=== PATIENT | female | born 1955 | race Two or more races ===

== ENCOUNTER 2016-02-22 10:56 | Inpatient (IN) | payer OTHER ==
[2016-02-22 11:07] VITALS: BMI 24.1
--- NOTE | 2016-02-22 12:10 | HP ---
COWS - Scale Resting Pulse: 2= [place] 101-120 Sweatin= Chills/Flushing Restless Observation: 3= Extraneous Movement Pupil Size: 1= Pupils >than Normal Bone or Joint Aches: 4=Acute Joint/Muscle Pain Runny Nose/ Eye Tearin= Runny Nose/Eyes GI Upset > 30mins: 2= Nausea/Diarrhea (NAUSEA) Tremor Observation: 1= Tremor [place], Not Seen Yawning Observation: 1= 1-2x During Session Anxiety or Irritability: 2=Irritable/Anxious Goose Flesh Skin: 0=Smooth Skin COWS Score: 19 CIWA Score - CIWA Score Nausea/Vomitin-Int. Nausea w/Dry Heave Muscle Tremors: 3 Anxiety: 4-Mod. Anxious/Guarded Agitation: 4-Moderately Restless Paroxysmal Sweats: No Perspiration Orientation: 0-Oriented Tacttile Disturbances: 3-Moderate Itch/Numb/Burn Auditory Disturbances: 0-None Visual Disturbances: 0-None Headache: 0-None Present CIWA-Ar Total Score: 18 Admission [facility] Chief Complaint: DETOX TX FOR HEROIN, COCAINE AND ALCOHOL DEPENDENCE Allergies/Adverse Reactions: Allergies Allergy/AdvReac Type Severity Reaction Status Date / Time ibuprofen [From Motrin] Allergy Severe Nausea Verified 02/22/16 11:20 History of Present Illness: 60 Y/O AA/FEMALIE WITH A HX OF HEROIN,COCAINE AND ALCOHOL DEPENDENCE SEEKING DETOX [place]. Exam Limitations: No Limitations - Ebola screening Have you traveled outside of the country in the last 21 days: No Have you had contact with anyone from an Ebola affected area: No Have you been sick,other than usual withdrawal symptoms: No Do you have a fever: No - Review of Systems Constitutional: Chills, Loss of Appetite, Night Sweats, Changes in sleep, Unintentional Wgt. Loss EENT: reports: Blurred Vision (WEARS GLASSES.), Tearing, Nose Congestion, Dental Problems (BILATERAL DENTURES) Respiratory: reports: No Symptoms reported Cardiac: reports: No Symptoms Reported GI: reports: Constipated, Diarrhea, Nausea, Poor Appetite, Poor Fluid Intake : reports: Other Musculoskeletal: reports: Joint Pain (HX JOINT PAINS), Muscle Pain Integumentary: reports: No Symptoms Reported Neuro: reports: Headache, Tremors, Unsteady Gait, Dizziness Endocrine: reports: No Symptoms Reported Hematology: reports: No Symptoms Reported Psychiatric: reports: Orientated x3, Anxious, Depressed (HX DEPRESSION) Other Systems: Reviewed and Negative Patient History - Patient Medical History Hx Anemia: No Hx Asthma: No Hx Chronic Obstructive Pulmonary Disease (COPD): No Hx Cancer: No Hx Cardiac Disorders: No Hx Congestive Heart Failure: No Hx Hypertension: Yes (ON MED) Hx Hypercholesterolemia: No Hx Pacemaker: No HX Cerebrovascular Accident: No Hx Seizures: No Hx Diabetes: No Hx Gastrointestinal Disorders: No Hx Liver Disease: No Hx Genitourinary Disorders: No Hx Sexually Transmitted Disorders: No Hx Renal Disease (ESRD): No Hx Thyroid Disease: No Hx Human Immunodeficiency Virus (HIV): No (LAST 2013 NEGATIVE) Hx Hepatitis C: No Hx Depression: Yes Hx Suicide Attempt: No (DENIES) Hx Bipolar Disorder: No Hx Schizophrenia: No - Patient Surgical History Past Surgical History: Yes Hx Neurologic Surgery: No Hx Cataract Extraction: No Hx Cardiac Surgery: No Hx Lung Surgery: No Hx Breast Surgery: No Hx Breast Biopsy: No Hx Abdominal Surgery: No Hx Appendectomy: No Hx Cholecystectomy: No Hx Genitourinary Surgery: No Hx Section: No Hx Orthopedic Surgery: Yes (L knee sx ARTHROSCOPIC 2010) Hx Hysterectomy: No Anesthesia Reaction: No - PPD History Previous Implant?: Yes Documented Results: Negative w/proof Implanted On Prior [facility] Admission?: Yes Date: 10/15/15 Results: 0 MM PPD to be Administered?: No - Reproductive History Patient is a Female of Child Bearing Age (11 -55 yrs old): No (MENOPAUSAL WOMAN) Last Menstrual Period: 02/14/03 Patient : No - Smoking Cessation Smoking history: Current every day smoker Have you smoked in the past 12 months: Yes Aproximately how many cigarettes per day: 20 Hx Chewing Tobacco Use: No Initiated information on smoking cessation: Yes 'Breaking Loose' booklet given: 02/22/16 - Substance & Tx. History Hx Alcohol Use: Yes (SHARON/MCDERMOTT BEER) Hx Substance Use: Yes (HEROIN/COCAINE) Substance Use Type: Alcohol, Cocaine, Heroin Hx Substance Use Treatment: Yes ([facility]-DETOX) - Substances Abused Heroin Route: Inhalation Frequency: Daily Amount used: 10-15 BAGS Age of first use: 13 Date of Last Use: 02/21/16 Alcohol Route: Oral Frequency: Daily Amount used: 1 PINT COGNAC Age of first use: 13 Date of Last Use: 02/21/16 Cocaine Route: Inhalation Frequency: Daily Amount used: 1-2 GRAMS Age of first use: 13 Date of Last Use: 02/21/16 Family Disease History - Family Disease History Family Disease History: Other: Brother (DSA,ALCOHOL) Admission Physical Exam [facility] - Vital Signs Vital Signs: Vital Signs - 24 hr 02/22/16 11:04 Temperature 98.7 F Pulse Rate 105 H Respiratory 20 Rate Blood Pressure 137/91 - Physical General Appearance: Yes: Moderate Distress, Irritable, Anxious HEENTM: Yes: EOMI, Normocephalic, REZA, Pharynx Normal, Nasal Congestion, Rhinorrhea Respiratory: Yes: Chest Non-Tender, Lungs Clear, Normal Breath Sounds, No Respiratory Distress Neck: Yes: Supple, Trachea in good position Breast: Yes: Breast Exam Deferred Cardiology: Yes: Regular Rhythm, Regular Rate, S1, S2 Abdominal: Yes: Normal Bowel Sounds, Non Tender, Flat, Soft Genitourinary: Yes: Other (N/C) Back: Yes: Within Normal Limits Musculoskeletal: Yes: full range of Motion, Gait Steady Extremities: Yes: Normal Range of Motion, Non-Tender Neurological: Yes: television producer II-XII NML intact, Fully Oriented, Alert Integumentary: Yes: Dry, Warm - Diagnostic (1) Alcohol dependence with withdrawal Current Visit: Yes Status: Acute Qualifiers: Complication of substance-induced condition: uncomplicated Qualified Code(s): F10.230 - Alcohol dependence with withdrawal, uncomplicated (2) Nicotine dependence Current Visit: Yes Status: Chronic Qualifiers: Nicotine product type: cigarettes Substance use status: uncomplicated Qualified Code(s): F17.210 - Nicotine dependence, cigarettes, uncomplicated (3) Opioid dependence with withdrawal Current Visit: Yes Status: Acute (4) Cocaine dependence, uncomplicated Current Visit: Yes Status: Acute (5) Hypertension Current Visit: Yes Status: Chronic Qualifiers: Hypertension type: essential hypertension Qualified Code(s): I10 - Essential (primary) hypertension Cleared for Admission [facility] - Detox or Rehab [facility] Level of Care: Medically Managed Detox Regimen/Protocol: Methadone/Librium [facility] Breath Alcohol Content Breath Alcohol Content: 0 Urine Pregancy Test - Result Urine Test Results: Negative- NO Line Present Urine Drug Screen - Results Drug Screen Negative: No Urine Drug Screen Results: KHAI-Cocaine, OPI-Opiates, BZO-Benzodiazepines
[2016-02-22] MEDS ORDERED: guaiFENesin/D-METHORPHAN HB 10 ML UNIT-DOSE CUPS PO PRN (12:19)
[2016-02-22] MEDS ORDERED: LOPERAMIDE HCL 2 MG CAPSULE PO PRN (12:19)
[2016-02-22] MEDS ORDERED: MAGNESIUM HYDROX 2400MG/30ML ORAL SUSPENSION 30 ML CUP PO PRN (12:19)
[2016-02-22] MEDS ORDERED: MENTHOL/PHENOL 1 EACH UD MM PRN (12:19)
[2016-02-22] MEDS ORDERED: IBUPROFEN 400 MG TABLET (FP) PO PRN (12:19)
[2016-02-22] MEDS ORDERED: chlordiazePOXIDE HCL 25 MG CAPSULE PO PRN (12:19)
[2016-02-22] MEDS ORDERED: P-EPHED 60MG/TRIPROLIDI 2.5MG TABLET PO PRN (12:19)
[2016-02-22] MEDS ORDERED: ACETAMINOPHEN 325 MG TABLET (FP) PO PRN (12:19)
[2016-02-22] MEDS ORDERED: hydrOXYzine PAMOATE 25 MG CAPSULE (FP) PO PRN (12:19)
[2016-02-22] MEDS ORDERED: MAGNESIUM CITRATE 300 ML BOTTLE PO PRN (12:19)
[2016-02-22] MEDS ORDERED: MAG HYDROX/AL HYDROX/SIMETH 30 ML UNIT-DOSE CUP PO PRN (12:19)
[2016-02-22] MEDS ORDERED: METHADONE HCL 10 MG TABLET (FOR DETOX USE ONLY) PO ONE ×2 (13:49→23:00)
[2016-02-22] MEDS: HYDROCHLOROTHIAZIDE 25 MG TABLET (FP) PO SCH (13:54)
[2016-02-22] MEDS: NICOTINE 21 MG/24 HOURS TOPICAL PATCH TD SCH (13:57)
[2016-02-22 16:32] LABS: URINE APPEARANCE CLEAR; URINE BILIRUBIN NEGATIVE (NEGATIVE); URINE BLOOD NEGATIVE (NEGATIVE); URINE COLOR LTYELLOW; URINE GLUCOSE (UA) NEGATIVE (NEGATIVE); URINE KETONE NEGATIVE (NEGATIVE); URINE LEUK ESTERASE NEGATIVE (NEGATIVE); URINE NITRITE NEGATIVE (NEGATIVE); URINE PROTEIN NEGATIVE (NEGATIVE); URINE UROBILINOGEN NEGATIVE E.U./dl (0.2-1.0)
[2016-02-22] MEDS: chlordiazePOXIDE HCL 25 MG CAPSULE PO SCH ×2 (17:15→22:20)
[2016-02-22] MEDS: THIAMINE HCL 100 MG TABLET (FP) PO SCH (22:20)
[2016-02-22] MEDS: diphenhydrAMINE HCL 50 MG CAPSULE PO PRN (22:23)
[2016-02-23] MEDS: chlordiazePOXIDE HCL 25 MG CAPSULE PO SCH ×4 (05:26→23:00)
[2016-02-23] MEDS ORDERED: METHADONE HCL 10 MG TABLET (FOR DETOX USE ONLY) PO SCH (10:00)
[2016-02-23 10:03] LABS: MCH 30.3 pg (25.7-33.7); MCHC 33.2 g/dl (32.0-36.0); MEAN CELL VOLUME 91.4 fl (80-96); MEAN PLT VOLUME 9.3 fl (7.5-11.1); PLATELET COUNT 242 K/MM3 (134-434); RDW 13.2 % (11.6-15.6); WHITE BLOOD COUNT 4.1 K/mm3 (4.0-10.0)
--- NOTE | 2016-02-23 10:17 | CONSULT ---
[facility] Psychiatric Consult - Data Date of interview: 02/23/16 Admission source: [facility] Identifying data: This is one of multiple admissions to [facility] for this 60 y/ o AA female seeking detox treatment,on ,for alcohol,cocaine and heroin dependence.Patient is single,a mother of one,domiciled,currently unemployed ( laid off in July 2015) and supported on unemployment benefits. Substance Abuse History: - Smoking Cessation. Smoking history: Current every day smoker. Have you smoked in the past 12 months: Yes. Aproximately how many cigarettes per day: 20. Hx Chewing Tobacco Use: No. Initiated information on smoking cessation: Yes. 'Breaking Loose' booklet given: 02/22/16. - Substance & Tx. History. Hx Alcohol Use: Yes (SHARON/MCDERMOTT BEER). Hx Substance Use: Yes (HEROIN/COCAINE). Substance Use Type: Alcohol, Cocaine, Heroin. Hx Substance Use Treatment: Yes ([facility]DETOX). - Substances Abused. Heroin. Route: Inhalation. Frequency: Daily. Amount used: 10-15 BAGS. Age of first use: 13. Date of Last Use: 02/21/16. Alcohol. Route: Oral. Frequency: Daily. Amount used: 1 PINT COGNAC. Age of first use: 13. Date of Last Use: . Cocaine. Route: Inhalation. Frequency: Daily. Amount used: 1-2 GRAMS. Age of first use: 13. Date of Last Use: 02/21/16. Confirmed by patient. Medical History: Remarkable for a history of hepatitis C,hypertension and arthroscopic surgery on left knee (2010). Psychiatric History: No reported history of psychiatric hospitalizations.Ms Quinteros used to be on methadone maintenance (daily dose=80 mg) at the [facility] program in [facility] (dropped out in 2001).No OPD care.Patient reports a brief trial of amitryptiline (prescribed by primary care physician).She stopped taking that medication due to intolerable side effects.Chronic insomnia is reported.Patient denies history of suicide attempts. Physical/Sexual Abuse/Trauma History: Patient denies. Additional Comment: Urine Drug Screen Results: KHAI-Cocaine, OPI-Opiates, BZO- Benzodiazepines.Noted. Mental Status Exam - Mental Status Exam Alert and Oriented to: Time, Place, Person Cognitive Function: Good Patient Appearance: Well Groomed Mood: Nervous, Withdrawn, Anxious (dysphoric) Affect: Appropriate, Normal Range Patient Behavior: Fatigued, Talkative, Appropriate, Cooperative Speech Pattern: Clear Voice Loudness: Normal Thought Process: Goal Oriented Thought Disorder: Not Present Hallucinations: Denies Suicidal Ideation: Denies Homicidal Ideation: Denies Insight/Judgement: Poor Sleep: Poorly, Difficulty falling asleep Appetite: Poor, Weight loss Muscle strength/Tone: Normal Gait/Station: Normal Psychiatric Findings - Problem List ([place] 1, 2,3) (1) Alcohol dependence with withdrawal Current Visit: Yes Status: Acute Qualifiers: Complication of substance-induced condition: uncomplicated Qualified Code(s): F10.230 - Alcohol dependence with withdrawal, uncomplicated (2) Cocaine dependence, uncomplicated Current Visit: Yes Status: Acute (3) Opioid dependence with withdrawal Current Visit: Yes Status: Acute (4) Nicotine dependence Current Visit: Yes Status: Acute Qualifiers: Nicotine product type: cigarettes Substance use status: uncomplicated Qualified Code(s): F17.210 - Nicotine dependence, cigarettes, uncomplicated (5) Substance induced mood disorder Current Visit: Yes Status: Suspected (6) Adjustment disorder with mixed anxiety and depressed mood Current Visit: Yes Status: Chronic (7) Depressive disorder Current Visit: Yes Status: Suspected (8) Hypertension Current Visit: Yes Status: Chronic Qualifiers: Hypertension type: essential hypertension Qualified Code(s): I10 - Essential (primary) hypertension (9) Weight loss Current Visit: Yes Status: Chronic - Initial Treatment Plan Initial Treatment Plan: Psychoeducation.Detoxification.Zolpidem 5 mg po hs prn for insomnia.Patient is made aware of risk of parasomnias.She agrees with this careplan.
[2016-02-23] MEDS: HYDROCHLOROTHIAZIDE 25 MG TABLET (FP) PO SCH (10:18)
[2016-02-23] MEDS: PRENATAL VITAMINS W/ FOLIC ACID TABLET (FP) PO SCH (10:18)
[2016-02-23] MEDS: NICOTINE 21 MG/24 HOURS TOPICAL PATCH TD SCH (10:19)
[2016-02-23 10:34] LABS: ALBUMIN 4.1 g/dl (3.4-5.0); ALK PHOS 78 U/L (45-117); ANION GAP 11 (8-16); BILIRUBIN,TOTAL 0.5 mg/dL (0.2-1.0); CALCIUM 9.8 mg/dL (8.5-10.1); CO2 25 mmol/L (21-32); CREATININE 0.7 mg/dL (0.55-1.02); GLUCOSE,RANDOM 72 mg/dL (74-106); SGOT/AST 23 U/L (15-37); SGPT/ALT 25 U/L (12-78); TOT PROT 8.1 g/dl (6.4-8.2)
[2016-02-23] MEDS ORDERED: ONDANSETRON *ODT* 4 MG TABLET SL ONE (11:33)
--- NOTE | 2016-02-23 12:14 | PN ---
S CIWA - CIWA Score Nausea/Vomitin Muscle Tremors: 3 Anxiety: 3 Agitation: 3 Paroxysmal Sweats: 3 Orientation: 0-Oriented Tacttile Disturbances: 2-Mild Itch/Numbness/Burn Auditory Disturbances: 0-None Visual Disturbances: 0-None Headache: 0-None Present CIWA-Ar Total Score: 17 BHS COWS - Scale Resting Pulse: 1= [place] 81-100 Sweatin=Flushed/Facial Moisture Restless Observation: 1= Difficult to Sit Still Pupil Size: 1= Pupils >than Normal Bone or Joint Aches: 2= Severe Diffuse Aches Runny Nose/ Eye Tearin= Nasal Congestion GI Upset > 30mins: 2= Nausea/Diarrhea Tremor Observation of Outstretched Hands: 2= Slight Tremor Visible Yawning Observation: 0= None Anxiety or Irritability: 2=Irritable/Anxious Goose Flesh Skin: 0=Smooth Skin COWS Score: 14 S Progress Note (SOAP) Subjective: interrupted sleep, sweats, shakes, nausea, Objective: 02/23/16 12:10 Vital Signs Temperature 97.3 F L 02/23/16 09:28 Pulse Rate 92 H 02/23/16 09:28 Respiratory Rate 20 02/23/16 09:28 Blood Pressure 130/85 02/23/16 09:28 O2 Sat by Pulse Oximetry (%) Laboratory Tests 02/22/16 02/23/16 02/23/16 15:00 06:00 06:00 WBC 4.1 RBC 4.43 Hgb 13.4 D Hct 40.5 MCV 91.4 MCHC 33.2 RDW 13.2 Plt Count 242 MPV 9.3 Sodium 141 Potassium 4.0 Chloride 105 Carbon Dioxide 25 D Anion Gap 11 BUN 7 D Creatinine 0.7 Creat Clearance w eGFR > 60 Random Glucose 72 L Calcium 9.8 Total Bilirubin 0.5 D AST 23 ALT 25 Alkaline Phosphatase 78 D Total Protein 8.1 D Albumin 4.1 D Urine Color Ltyellow Urine Appearance Clear Urine pH 6.0 Ur Specific [place] 1.010 Urine Protein Negative Urine Glucose (UA) Negative Urine Ketones Negative Urine Blood Negative Urine Nitrite Negative Urine Bilirubin Negative Urine Urobilinogen Negative Ur Leukocyte Esterase Negative RPR Titer 02/23/16 06:00 WBC RBC Hgb Hct MCV MCHC RDW Plt Count MPV Sodium Potassium Chloride Carbon Dioxide Anion Gap BUN Creatinine Creat Clearance w eGFR Random Glucose Calcium Total Bilirubin AST ALT Alkaline Phosphatase Total Protein Albumin Urine Color Urine Appearance Urine pH Ur Specific [place] Urine Protein Urine Glucose (UA) Urine Ketones Urine Blood Urine Nitrite Urine Bilirubin Urine Urobilinogen Ur Leukocyte Esterase RPR Titer Nonreactive pt aox3 in nad lying in bed Assessment: 02/23/16 12:11 withdrawl sx's Plan: cont, detox increase fluids ensure bid clonidine at hs zofran prn .
[2016-02-23 14:17] LABS: URINE APPEARANCE CLEAR; URINE BILIRUBIN NEGATIVE (NEGATIVE); URINE BLOOD NEGATIVE (NEGATIVE); URINE COLOR LT. YELLOW; URINE GLUCOSE (UA) NEGATIVE (NEGATIVE); URINE KETONE NEGATIVE (NEGATIVE); URINE LEUK ESTERASE NEGATIVE (NEGATIVE); URINE NITRITE NEGATIVE (NEGATIVE); URINE PROTEIN NEGATIVE (NEGATIVE); URINE UROBILINOGEN 0.2 E.U/dl E.U./dl (0.2-1.0)
[2016-02-23] MEDS ORDERED: cloNIDine HCL 0.1 MG TABLET PO SCH (22:00)
[2016-02-23] MEDS: THIAMINE HCL 100 MG TABLET (FP) PO SCH (22:11)
[2016-02-23] MEDS: cloNIDine HCL 0.1 MG TABLET PO SCH (22:12)
[2016-02-23] MEDS: diphenhydrAMINE HCL 50 MG CAPSULE PO PRN (22:12)
[2016-02-24] MEDS: chlordiazePOXIDE HCL 25 MG CAPSULE PO SCH ×2 (05:15→10:16)
--- NOTE | 2016-02-24 09:50 | EKG ---
Test Reason : Blood Pressure : / mmHG Vent. Rate : 075 BPM Atrial Rate : 075 BPM P-R Int : 156 ms QRS Dur : 076 ms QT Int : 392 ms P-R-T Axes : 070 056 064 degrees QTc Int : 437 ms NORMAL SINUS RHYTHM POSSIBLE LEFT ATRIAL ENLARGEMENT BORDERLINE ECG NO PREVIOUS ECGS AVAILABLE Confirmed by SHERMAN DESIR, KEYLA ([id number]) on 02/24/2016 9:49:46 AM Referred By: Irwin Thomas Confirmed By:KEYLA WHITAKER MD
[2016-02-24] MEDS: METHADONE HCL 5 MG TABLET (FOR DETOX USE ONLY) PO SCH (10:16)
[2016-02-24] MEDS: cloNIDine HCL 0.1 MG TABLET PO SCH (10:16)
[2016-02-24] MEDS: PRENATAL VITAMINS W/ FOLIC ACID TABLET (FP) PO SCH (10:16)
[2016-02-24] MEDS: NICOTINE 21 MG/24 HOURS TOPICAL PATCH TD SCH (10:17)
[2016-02-24] MEDS: HYDROCHLOROTHIAZIDE 25 MG TABLET (FP) PO SCH (10:17)
--- NOTE | 2016-02-24 10:19 | PN ---
Psychiatric Progress Note Vital Signs: Vital Signs Period Temp Pulse Resp BP Sys/Reyes Pulse Ox Last 24 Hr 97.5 F-99.3 F 71-91 16-20 95-145/53-95 Date of Session: 02/24/16 Chief Complaint:: My Sleeping medicine HPI: Patient reports insomnia, reports nwas nnotn getting adriana sleeping pill yesterday night Current Medications: Active Medications Generic Name Dose Route Start Last Admin Trade Name Freq PRN Reason Stop Dose Admin Acetaminophen 650 mg 02/22/16 12:19 Tylenol - PO Q4H PRN FEVER OR PAIN Al Hydroxide/Mg Hydroxide 30 ml 02/22/16 12:19 Mylanta Oral Suspension - PO Q6H PRN DYSPEPSIA Chlordiazepoxide HCl 10 mg 02/25/16 17:00 Librium - PO 02/26/16 11:01 [id number] ALICE Chlordiazepoxide HCl 25 mg 02/22/16 12:19 02/22/16 13:54 Librium - PO 02/25/16 12:19 25 mg Q4H PRN Administration WITHDRAWAL(CONT SUBST) Chlordiazepoxide HCl 25 mg 02/23/16 17:00 02/24/16 05:15 Librium - PO 02/24/16 11:01 25 mg O3P-BHS ALICE Administration Chlordiazepoxide HCl 15 mg 02/24/16 17:00 Librium - PO 02/25/16 11:01 [id number]-NZZ ALICE Clonidine 0.1 mg 02/23/16 22:00 02/23/16 22:12 Catapres - PO 0.1 mg BID ALICE Administration Diphenhydramine HCl 50 mg 02/22/16 12:19 02/23/16 22:12 Benadryl - PO 50 mg HSMR1 PRN Administration INSOMNIA Eucalyptus/Menthol/Phenol/Sorbitol 1 each 02/22/16 12:19 Cepastat Lozenge - MM Q4H PRN SORE THROAT Guaifenesin 10 ml 02/22/16 12:19 Robitussin Dm - PO Q6H PRN COUGH Hydrochlorothiazide 25 mg 02/22/16 13:45 02/23/16 10:18 Hctz - PO 25 mg DAILY ALICE Administration Hydroxyzine Pamoate 25 mg 02/22/16 12:19 Vistaril - PO Q4H PRN AGITATION Loperamide HCl 4 mg 02/22/16 12:19 Imodium - PO Q6H PRN DIARRHEA Magnesium Citrate 300 ml 02/22/16 12:19 Citroma - PO Q48H PRN CONSTIPATION Magnesium Hydroxide 30 ml 02/22/16 12:19 Milk Of Magnesia - PO DAILY PRN CONSTIPATION Methadone HCl 10 mg 02/26/16 10:00 Dolophine - PO 02/26/16 10:01 DAILY ALICE Methadone HCl 15 mg 02/24/16 10:00 Dolophine - PO 02/25/16 10:01 DAILY ALICE Methadone HCl 5 mg 02/27/16 06:00 Dolophine - PO 02/27/16 06:01 DAILY@0600 ALICE Nicotine 21 mg 02/22/16 13:49 02/23/16 10:19 Nicoderm Patch - TD 21 mg DAILY ALICE Administration Multivit/Folic Acid/Iron 1 tab 02/23/16 10:00 02/23/16 10:18 Vitamins (Sjr) - PO 1 tab DAILY ALICE Administration Pseudoephedrine/Triprolidine 1 combo 02/22/16 12:19 Actifed - PO TID PRN NASAL CONGESTION Thiamine HCl 100 mg 02/22/16 22:00 02/23/16 22:11 Vitamin B1 - PO 100 mg HS [facility] Administration Zolpidem Tartrate 5 mg 02/24/16 22:00 Ambien - PO HS [facility] Medication(s) Change(s): Ambien 10mg po qhs Mental Status Exam - Mental Status Exam Alert and Oriented to: Person Cognitive Function: Fair Patient Appearance: Unkempt Mood: Anxious Affect: Mood Congruent Speech Pattern: Excessive Voice Loudness: Mildly Loud Thought Process: Goal Oriented Hallucinations: Denies Suicidal Ideation: Denies Homicidal Ideation: Denies Insight/Judgement: Fair Sleep: Difficulty falling asleep Appetite: Weight loss Muscle strength/Tone: Normal Gait/Station: Normal Additional Comments: Ambien 10mg po qhs Psychiatric Treatment Plan - Problem List (1) Alcohol dependence with withdrawal Current Visit: Yes Qualifiers: Complication of substance-induced condition: uncomplicated Qualified Code(s): F10.230 - Alcohol dependence with withdrawal, uncomplicated (2) Cocaine dependence, uncomplicated Current Visit: Yes (3) Nicotine dependence Current Visit: Yes Qualifiers: Nicotine product type: cigarettes Substance use status: uncomplicated Qualified Code(s): F17.210 - Nicotine dependence, cigarettes, uncomplicated (4) Opioid dependence with withdrawal Current Visit: Yes (5) Adjustment disorder with mixed anxiety and depressed mood Current Visit: Yes (6) Weight loss Current Visit: Yes (7) Depressive disorder Current Visit: Yes (8) MDD (major depressive disorder) Current Visit: No Initial treatment plan: Ambien 10mg po qhs
--- NOTE | 2016-02-24 10:51 | PN ---
S CIWA - CIWA Score Nausea/Vomitin-No Nausea/No Vomiting Muscle Tremors: 4-Moderate,w/Arms Extend Anxiety: 3 Agitation: 4-Moderately Restless Paroxysmal Sweats: 3 Orientation: 0-Oriented Tacttile Disturbances: 0-None Auditory Disturbances: 0-None Visual Disturbances: 0-None Headache: 0-None Present CIWA-Ar Total Score: 14 BHS COWS - Scale Resting Pulse: 1= [place] 81-100 Sweatin=Flushed/Facial Moisture Restless Observation: 1= Difficult to Sit Still Pupil Size: 0= Normal to Room Light Bone or Joint Aches: 2= Severe Diffuse Aches Runny Nose/ Eye Tearin= Nasal Congestion GI Upset > 30mins: 0= None Tremor Observation of Outstretched Hands: 2= Slight Tremor Visible Yawning Observation: 2= >3x During Session Anxiety or Irritability: 2=Irritable/Anxious Goose Flesh Skin: 0=Smooth Skin COWS Score: 13 S Progress Note (SOAP) Subjective: sweats shakes interrupted sleep agitation anxiety nausea low appetite Objective: 02/24/16 10:50 Vital Signs Temperature 98.2 F 02/24/16 10:01 Pulse Rate 83 02/24/16 10:01 Respiratory Rate 16 02/24/16 10:01 Blood Pressure 95/68 02/24/16 10:01 O2 Sat by Pulse Oximetry (%) Laboratory Tests 02/22/16 02/23/16 02/23/16 15:00 06:00 06:00 WBC 4.1 RBC 4.43 Hgb 13.4 D Hct 40.5 MCV 91.4 MCHC 33.2 RDW 13.2 Plt Count 242 MPV 9.3 Sodium 141 Potassium 4.0 Chloride 105 Carbon Dioxide 25 D Anion Gap 11 BUN 7 D Creatinine 0.7 Creat Clearance w eGFR > 60 Random Glucose 72 L Calcium 9.8 Total Bilirubin 0.5 D AST 23 ALT 25 Alkaline Phosphatase 78 D Total Protein 8.1 D Albumin 4.1 D Urine Color Ltyellow Urine Appearance Clear Urine pH 6.0 Ur Specific [place] 1.010 Urine Protein Negative Urine Glucose (UA) Negative Urine Ketones Negative Urine Blood Negative Urine Nitrite Negative Urine Bilirubin Negative Urine Urobilinogen Negative Ur Leukocyte Esterase Negative RPR Titer 02/23/16 02/23/16 06:00 11:00 WBC RBC Hgb Hct MCV MCHC RDW Plt Count MPV Sodium Potassium Chloride Carbon Dioxide Anion Gap BUN Creatinine Creat Clearance w eGFR Random Glucose Calcium Total Bilirubin AST ALT Alkaline Phosphatase Total Protein Albumin Urine Color Lt. yellow Urine Appearance Clear Urine pH 7.0 Ur Specific [place] 1.010 Urine Protein Negative Urine Glucose (UA) Negative Urine Ketones Negative Urine Blood Negative Urine Nitrite Negative Urine Bilirubin Negative Urine Urobilinogen 0.2 e.u/dl Ur Leukocyte Esterase Negative RPR Titer Nonreactive awake/alert ambulating no acute distress Assessment: 02/24/16 10:50 withdrawal sx Plan: continue detox increase fluids zofran prn ensure bid
[2016-02-24] MEDS: chlordiazePOXIDE 5 MG CAPSULE PO SCH ×2 (17:40→22:22)
[2016-02-24] MEDS: THIAMINE HCL 100 MG TABLET (FP) PO SCH (22:22)
[2016-02-24] MEDS: ZOLPIDEM TARTRATE 5 MG TABLET PO SCH (22:23)
[2016-02-25] MEDS: chlordiazePOXIDE 5 MG CAPSULE PO SCH ×2 (05:23→10:18)
--- NOTE | 2016-02-25 09:46 | PN ---
BHS Progress Note (SOAP) Subjective: sweats, cold , nausea , hand arthritis Objective: 02/25/16 09:46 Vital Signs Temperature 98.4 F 02/25/16 05:49 Pulse Rate 81 02/25/16 05:49 Respiratory Rate 18 02/25/16 05:49 Blood Pressure 103/60 02/25/16 05:49 O2 Sat by Pulse Oximetry (%) Laboratory Tests 02/22/16 02/23/16 02/23/16 15:00 06:00 06:00 WBC 4.1 RBC 4.43 Hgb 13.4 D Hct 40.5 MCV 91.4 MCHC 33.2 RDW 13.2 Plt Count 242 MPV 9.3 Sodium 141 Potassium 4.0 Chloride 105 Carbon Dioxide 25 D Anion Gap 11 BUN 7 D Creatinine 0.7 Creat Clearance w eGFR > 60 Random Glucose 72 L Calcium 9.8 Total Bilirubin 0.5 D AST 23 ALT 25 Alkaline Phosphatase 78 D Total Protein 8.1 D Albumin 4.1 D Urine Color Ltyellow Urine Appearance Clear Urine pH 6.0 Ur Specific [place] 1.010 Urine Protein Negative Urine Glucose (UA) Negative Urine Ketones Negative Urine Blood Negative Urine Nitrite Negative Urine Bilirubin Negative Urine Urobilinogen Negative Ur Leukocyte Esterase Negative RPR Titer 02/23/16 02/23/16 06:00 11:00 WBC RBC Hgb Hct MCV MCHC RDW Plt Count MPV Sodium Potassium Chloride Carbon Dioxide Anion Gap BUN Creatinine Creat Clearance w eGFR Random Glucose Calcium Total Bilirubin AST ALT Alkaline Phosphatase Total Protein Albumin Urine Color Lt. yellow Urine Appearance Clear Urine pH 7.0 Ur Specific [place] 1.010 Urine Protein Negative Urine Glucose (UA) Negative Urine Ketones Negative Urine Blood Negative Urine Nitrite Negative Urine Bilirubin Negative Urine Urobilinogen 0.2 e.u/dl Ur Leukocyte Esterase Negative RPR Titer Nonreactive Assessment: 02/25/16 09:46 withdrawl sx;s 02/25/16 14:43 arthritis Plan: cont. detox increase fluids motrin prn
[2016-02-25] MEDS: PRENATAL VITAMINS W/ FOLIC ACID TABLET (FP) PO SCH (10:18)
[2016-02-25] MEDS: HYDROCHLOROTHIAZIDE 25 MG TABLET (FP) PO SCH ×2 (10:18→10:46)
[2016-02-25] MEDS: NICOTINE 21 MG/24 HOURS TOPICAL PATCH TD SCH (10:19)
[2016-02-25] MEDS: METHADONE HCL 5 MG TABLET (FOR DETOX USE ONLY) PO SCH (10:19)
[2016-02-25] MEDS: METHYL SALICYLATE/MENTHOL OINT 30 GM TUBE TP SCH ×2 (12:50→22:24)
[2016-02-25] MEDS: chlordiazePOXIDE HCL 10 MG CAPSULE PO SCH ×2 (17:27→22:24)
[2016-02-25] MEDS: ZOLPIDEM TARTRATE 5 MG TABLET PO SCH (22:24)
[2016-02-25] MEDS: THIAMINE HCL 100 MG TABLET (FP) PO SCH (22:24)
[2016-02-26] MEDS: chlordiazePOXIDE HCL 10 MG CAPSULE PO SCH ×2 (05:27→10:23)
--- NOTE | 2016-02-26 09:44 | PN ---
S Progress Note (SOAP) Subjective: ALERT,IRRITABLE,ANXIOUS,INTERRUPTED SLEEP Objective: 02/26/16 09:42 Vital Signs Temperature 97.4 F L 02/26/16 06:18 Pulse Rate 82 02/26/16 06:18 Respiratory Rate 20 02/26/16 06:18 Blood Pressure 113/71 02/26/16 06:18 O2 Sat by Pulse Oximetry (%) Assessment: 02/26/16 09:43 WITHDRAWAL SYMPTOM Plan: CONTINUE DETOX ,DISCHARGE IN AM
[2016-02-26] MEDS ORDERED: METHADONE HCL 10 MG TABLET (FOR DETOX USE ONLY) PO SCH (10:00)
[2016-02-26] MEDS: METHYL SALICYLATE/MENTHOL OINT 30 GM TUBE TP SCH ×2 (10:23→22:34)
[2016-02-26] MEDS: NICOTINE 21 MG/24 HOURS TOPICAL PATCH TD SCH (10:23)
[2016-02-26] MEDS: HYDROCHLOROTHIAZIDE 25 MG TABLET (FP) PO SCH (10:23)
[2016-02-26] MEDS: PRENATAL VITAMINS W/ FOLIC ACID TABLET (FP) PO SCH (10:23)
[2016-02-26] MEDS: ZOLPIDEM TARTRATE 5 MG TABLET PO SCH (22:33)
[2016-02-26] MEDS: THIAMINE HCL 100 MG TABLET (FP) PO SCH (22:33)
[2016-02-27] MEDS ORDERED: METHADONE HCL 5 MG TABLET (FOR DETOX USE ONLY) PO SCH (06:00)
--- NOTE | 2016-02-27 08:36 | PN ---
BHS Progress Note (SOAP) Subjective: ALERT,NO COMPLAINT Objective: 02/27/16 08:35 Vital Signs Temperature 97.7 F 02/27/16 06:00 Pulse Rate 79 02/27/16 06:00 Respiratory Rate 18 02/27/16 06:00 Blood Pressure 121/72 02/27/16 06:00 O2 Sat by Pulse Oximetry (%) Assessment: 02/27/16 08:35 Vital Signs Temperature 97.7 F 02/27/16 06:00 Pulse Rate 79 02/27/16 06:00 Respiratory Rate 18 02/27/16 06:00 Blood Pressure 121/72 02/27/16 06:00 O2 Sat by Pulse Oximetry (%) 02/27/16 08:35 02/27/16 08:35 NO WITHDRAWAL SYMPTOM Plan: DISCHARGE TODAY,FOLLOW UP WITH AFTER CARE PROGRAM ARRANGEMENT
--- NOTE | 2016-02-27 08:42 | DS ---
[facility] Detox Discharge Summary Admission Date: 02/22/16 Discharge Date: 02/27/16 - History Present History: Alcohol Dependence, Cocaine Dependence, Opioid Dependence Additional Comments: FOLLOW UP WITH AFTER [facility] PROGRAM ARRANGEMENT AND PMD FOR MEDICAL PROBLEM Pertinent Past History: HYPERTENSION NICOTINE DEPENDENCE - Physical Exam Results Vital Signs: Vital Signs Temperature 97.7 F 02/27/16 06:00 Pulse Rate 79 02/27/16 06:00 Respiratory Rate 18 02/27/16 06:00 Blood Pressure 121/72 02/27/16 06:00 O2 Sat by Pulse Oximetry (%) Pertinent Admission Physical Exam Findings: WITHDRAWAL SYMPTOM - Treatment Hospital Course: Detox Protocol Followed, Detoxed Safely, Responded well, Discharged Condition Good Patient has Accepted a Rehab Referral to: DECLINED - Medication Discharge Medications: Ambulatory Orders Amitriptyline HCl [Elavil -] 25 mg PO TID #90 tablet 10/30/15 Fluoxetine HCl [Prozac -] 20 mg PO DAILY #30 capsule 01/14/16 Quetiapine Fumarate [Seroquel] 100 tab PO BID #60 tablet 01/14/16 Zolpidem Tartrate [Ambien] 5 mg PO HS #14 tablet MDD 10 02/24/16 Hydrochlorothiazide [Hctz -] 25 mg PO DAILY #30 tablet 02/27/16 - Diagnosis (1) Alcohol dependence with withdrawal Current Visit: Yes Status: Acute Qualifiers: Complication of substance-induced condition: uncomplicated Qualified Code(s): F10.230 - Alcohol dependence with withdrawal, uncomplicated (2) Cocaine dependence, uncomplicated Current Visit: Yes Status: Acute (3) Nicotine dependence Current Visit: Yes Status: Acute Qualifiers: Nicotine product type: cigarettes Substance use status: uncomplicated Qualified Code(s): F17.210 - Nicotine dependence, cigarettes, uncomplicated (4) Opioid dependence with withdrawal Current Visit: Yes Status: Acute (5) Hypertension Current Visit: Yes Status: Chronic Qualifiers: Hypertension type: essential hypertension Qualified Code(s): I10 - Essential (primary) hypertension (6) Weight loss Current Visit: Yes Status: Chronic (7) Depressive disorder Current Visit: Yes Status: Suspected - AMA Did Patient Leave Against Medical Advice: No
[2016-02-27 10:23] VITALS: BP 112/78; PULSE 80; TEMP 97.9
== END 2016-02-27 09:38 | disposition home or self-care (01) | DRG 773 ==
LOC: YASAS 10:56 → Y6N 12:39
PROVIDERS: ADMIT Internal Medicine Addiction Medicine; ATTEND Internal Medicine Addiction Medicine
PROC: HZ2ZZZZ Detoxification Services for Substance Abuse Treatment (ICD-10-PCS; principal; 2016-02-22)
DX: F11.23 Opioid dependence with withdrawal (principal); F10.230 Alcohol dependence with withdrawal, uncomplicated; F14.20 Cocaine dependence, uncomplicated; F17.210 Nicotine dependence, cigarettes, uncomplicated; F19.24 Other psychoactive substance dependence with psychoactive substance-induced mood disorder; F43.23 Adjustment disorder with mixed anxiety and depressed mood; F33.9 Major depressive disorder, recurrent, unspecified; I10 Essential (primary) hypertension; M12.9 Arthropathy, unspecified; Z87.898 Personal history of other specified conditions
CPT/HCPCS: 36415; 80053; 81003; 85027; 86593; 93005; 93010